=== PATIENT | female | born 1995 | race Caucasian/White ===

== ENCOUNTER 2017-12-26 20:11 | Emergency (ER) | payer SELFPAY ==
[2017-12-26 20:56] VITALS: BP 116/69
[2017-12-26] MEDS ORDERED: Ibuprofen TAB* 600 MG PO ONE (21:11)
--- NOTE | 2017-12-26 21:12 | UC ---
Lower Extremity/Ankle HPI - HPI Summary HPI Summary: 22 female presents to with complaints of left foot/ankle pain that began a few weeks ago and has worsened over the past few days. Did try taking 400mg and wrapping it however has not had relief. Admits to swelling and bruising. Is able to bear weight and walk however it increases/worsens pain. No other complaints or injuries. No PMHx. Has been walking on it since injury - History of Current Complaint Chief Complaint: UCLowerExtremity Stated Complaint: RIGHT ANKLE INJURY Time Seen by Provider: 12/26/17 20:34 Hx Obtained From: Patient Hx Last Menstrual Period: unknown Onset/Duration: Sudden Onset, Lasting Weeks, Still Present, Worse Since Severity Initially: Moderate Severity Currently: Moderate Pain Intensity: 10 Pain Scale Used: 0-10 Numeric Aggravating Factor(s): Standing, Ambulation Alleviating Factor(s): Rest Able to Bear Weight: Yes - with pain, limping - Allergies/Home Medications Allergies/Adverse Reactions: Allergies Allergy/AdvReac Type Severity Reaction Status Date / Time No Known Allergies Allergy Verified 12/26/17 20:52 Home Medications: Home Medications NK [No Home Medications Reported] 12/26/17 [History Confirmed 12/26/17] PMH/Surg Hx/FS Hx/Imm Hx Respiratory History: Asthma Neurological History: Seizures - Surgical History Surgical History: Yes Surgery Procedure, Year, and Place: Adnoidectomy, Ear Tubes - Family History Known Family History: Positive: Diabetes Negative: Cardiac Disease, Hypertension - Social History Alcohol Use: Rare Substance Use Type: None Smoking Status (MU): Light Every Day Tobacco Smoker Type: Cigarettes Amount Used/How Often: 3 cig daily Household Exposure Type: Cigarettes - Immunization History Vaccination Up to Date: Yes Review of Systems Constitutional: Negative Respiratory: Negative Cardiovascular: Negative Musculoskeletal: Arthralgia, Edema, Myalgia, Other: - bruising of right foot, laterally and anterior Neurological: Negative All Other Systems Reviewed And Are Negative: Yes Physical Exam Triage Information Reviewed: Yes Appearance: Well-Appearing, No Pain Distress, Well-Nourished Vital Signs: Initial Vital Signs Temp 98.5 F 12/26/17 20:33 Pulse 85 12/26/17 20:33 Resp 16 12/26/17 20:33 BP 116/69 12/26/17 20:33 Pulse Ox 100 12/26/17 20:33 Vital Signs Reviewed: Yes Respiratory: Positive: Chest non-tender, Lungs clear, Normal breath sounds, No respiratory distress Cardiovascular: Positive: RRR, No Murmur, Pulses Normal - 1+ pedal bilaterally Musculoskeletal: Positive: Strength Limited @ - with foot flexion and extension TTP on base of 4/5th metatarsal joints and over anterior foot lateral side, ROM Limited @, Edema @ - lateral foot and 4/5th base of metatarsal with eccymosis, Other: - no elham sign Neurological Exam: Normal - sensation intact Neurological: Positive: Alert, Muscle Tone Normal Skin: Positive: Other - bruising and edema of right foot Diagnostics - Radiology right foot Xray Interpretation: No Acute Changes - soft tissue swelling, no evidence of fracture or dislocation Radiology Interpretation Completed By: ED Physician - Dr Navarro and Myself Re-Evaluation - Re-Evaluation First Eval Re-Evaluation Time: 22:06 Change: Unchanged - updated on xray results Lower Extremity Course/Dx - Course Course Of Treatment: xray obtained and negative for fracture, appears to be suffering from foot sprain/contusion. given ibuprofen while in UC. Placed in CAM boot. continue RICE and NSAIDs. along with cam boot at home. Aware of worsening signs and symptoms to watch out for. Follow up with ortho/PCP in 1 week if symptoms persist and to ensure improvement. Rest and avoid bearing weight. no other concerns at this time. patient agrees and understands. - Differential Dx/Diagnosis Differential Diagnosis/HQI/PQRI: Contusion, Dislocation, Fracture (Closed), Sprain, Strain Provider Diagnoses: right foot sprain - Physician Notifications Discussed Patient Care With: Dr Navarro Discharge - Discharge Plan Condition: Good Disposition: HOME Patient Education Materials: Foot Sprain (ED) Referrals: Helga Wilson MD [Primary Care Provider] - Noel Miguel MD [Medical Doctor] - Additional Instructions: Continue rest, ice, elevation and wearing boot when walking. Try and refrain from walking when able. Continue ibuprofen for pain and inflammation. Follow up with PCP/Ortho for further evaluation and work up if symptoms persist or worsen. Any new or worsening symptoms please seek medical attention promptly.
--- NOTE | 2017-12-26 22:24 | RAD ---
Indication: Soft tissue swelling, bruising, and pain at the second through fifth metatarsal phalangeal joints of the RIGHT foot. Increased pain with weightbearing. Comparison: No relevant prior exams available on the [facility] PACS for comparison. Technique: AP, lateral, and oblique views RIGHT foot. REPORT AND IMPRESSION: Negative for fracture or articular malalignment. Mild soft tissue swelling over the dorsum of the forefoot.
== END 2017-12-26 22:17 | disposition home or self-care (01) ==
LOC: UCCORT 20:11
DX: S93.401A Sprain of unspecified ligament of right ankle, initial encounter (principal); X58.XXXA Exposure to other specified factors, initial encounter; Y93.9 Activity, unspecified; Y92.9 Unspecified place or not applicable; F17.210 Nicotine dependence, cigarettes, uncomplicated
CPT/HCPCS: 84702; 99213; A9270-GY; G0463

== ENCOUNTER 2018-01-19 20:28 | Emergency (ER) | payer SELFPAY ==
[2018-01-19 20:42] VITALS: BP 114/56
--- NOTE | 2018-01-19 21:08 | UC ---
General HPI - HPI Summary HPI Summary: per director of counseling "c/o vomiting and low grade fever x 2 days. " Here w/ her BF of 3 wks. denies pregancy. on OCP. took 2 tests today that were negative. tmax 99.4. last vomited 3 hrs ago after she ate dinner immediately after taking zofran. states that she is uruinating at [facility]ast every 8 hrs. has not tried to drink much fluid. she went to ER 2 days ago for chest pain. states that nausea vomiting started the following day. no diarrhea. no abd pain. no breast tenderness. denies seizures (able to keep depakote down daily). no coffee ground emesis. -much of the history is given by the BF Jeb - History of Current Complaint Chief Complaint: UCGI Stated Complaint: FEVER, EMISIS Time Seen by Provider: 01/19/18 20:57 Hx Last Menstrual Period: unknown Pain Intensity: 0 - Allergy/Home Medications Allergies/Adverse Reactions: Allergies Allergy/AdvReac Type Severity Reaction Status Date / Time cephalexin [From Keflex] Allergy Unknown Verified 01/19/18 20:40 Reaction Details Latex, Natural Rubber Allergy Hives Verified 01/19/18 20:40 Home Medications: Home Medications Divalproex DR TAB(*) [Depakote DR TAB(*)] 500 mg PO DAILY 01/19/18 [History Confirmed 01/19/18] Ondansetron ODT TAB* [Zofran 4 MG Odt TAB*] 4 mg PO BID 01/19/18 [History Confirmed 01/19/18] PMH/Surg Hx/FS Hx/Imm Hx Previously Healthy: Yes Neurological History: Seizures Psychological History: Anxiety - Surgical History Surgical History: Yes Surgery Procedure, Year, and Place: Adnoidectomy, Ear Tubes - Family History Known Family History: Positive: Diabetes Negative: Cardiac Disease, Hypertension - Social History Alcohol Use: None Substance Use Type: None Smoking Status (MU): Light Every Day Tobacco Smoker Type: Cigarettes Amount Used/How Often: 3 cig daily Household Exposure Type: Cigarettes - Immunization History Vaccination Up to Date: Yes Review of Systems Constitutional: Fever - tmax reported to be 99.4 only, Fatigue Skin: Negative Eyes: Negative ENT: Negative Respiratory: Negative Cardiovascular: Negative Gastrointestinal: Vomiting, Nausea Genitourinary: Negative Motor: Negative Neurovascular: Negative Musculoskeletal: Negative Neurological: Negative Psychological: Negative Is Patient Immunocompromised?: No All Other Systems Reviewed And Are Negative: Yes Physical Exam Triage Information Reviewed: Yes Appearance: Ill-Appearing - poor historian, hygiene is poor. ambulates without difficulty into and out of the exam room. able to mount and dismount the exam table without difficulty. Vital Signs: Initial Vital Signs Temp 97.8 F 01/19/18 20:37 Pulse 72 01/19/18 20:37 Resp 16 01/19/18 20:37 BP 114/56 01/19/18 20:37 Pulse Ox 99 01/19/18 20:37 Vital Signs Reviewed: Yes Eye Exam: Normal ENT Exam: Normal ENT: Positive: Pharynx normal, TMs normal Neck exam: Normal Neck: Positive: Supple, Nontender, No Lymphadenopathy Respiratory: Positive: Lungs clear, Normal breath sounds, No respiratory distress, No accessory muscle use. Negative: Crackles, Rhonchi, Stridor, Wheezing Cardiovascular Exam: Normal Cardiovascular: Positive: RRR, No Murmur Abdomen Description: Positive: Nontender, Soft. Negative: CVA Tenderness (R), CVA Tenderness (L), Distended Bowel Sounds: Positive: Present Musculoskeletal Exam: Normal Neurological Exam: Normal Psychological Exam: Normal Skin Exam: Normal Course/Dx - Course Course Of Treatment: nausea & vomiting. reports 2 negative tests today. declines serum test at this time. needs to consider to be done in f/u. -likely viral etiology. stressed the importance of drinking water and gatorade and this is the purpose of the zofran. discussed in detail the reasons for going to the ER for IV fluids. - Differential Dx - Multi-Symptom Differential Diagnoses: Other - nausea, vomiting, viral, Provider Diagnoses: nausea, vomiting Discharge - Sign-Out/Discharge Documenting (check all that apply): Discharge - Discharge Plan Condition: Stable Disposition: HOME Prescriptions: Ondansetron ODT TAB* [Zofran 4 MG Odt TAB*] 4 mg PO Q6H PRN 5 Days #10 tab.odt PRN Reason: Nausea Patient Education Materials: Acute Nausea and Vomiting (ED) Referrals: Helga Wilson MD [Primary Care Provider] - 3 Days Additional Instructions: Make sure you try to drink sips of water adn gatorade frequently. You should go to the ER to consider IV fluids if your symptoms worsen or you are not urinating at least once every 8 hrs or you are not better tomorrow. Take the zofran every 6-8 hrs so that you can keep fluids down. - Billing Disposition and Condition Condition: STABLE Disposition: HOME
== END 2018-01-19 21:21 | disposition home or self-care (01) ==
LOC: UCCORT 20:28
DX: R11.2 Nausea with vomiting, unspecified (principal); R50.9 Fever, unspecified; R53.83 Other fatigue; R56.9 Unspecified convulsions; F41.9 Anxiety disorder, unspecified; Z88.1 Allergy status to other antibiotic agents; Z91.040 Latex allergy status; F17.210 Nicotine dependence, cigarettes, uncomplicated
CPT/HCPCS: 99212; G0463

== ENCOUNTER 2019-03-15 14:09 | Emergency (ER) | payer OTHER | END 2019-03-15 15:26 | disposition left against medical advice (07) | LOC: UCCORT 14:09 | DX: M25.571 Pain in right ankle and joints of right foot (principal); Z53.21 Procedure and treatment not carried out due to patient leaving prior to being seen by health care provider ==

== ENCOUNTER 2019-04-04 13:00 | Emergency (ER) | payer OTHER ==
[2019-04-04 13:30] VITALS: BP 95/50
--- NOTE | 2019-04-04 14:07 | UC ---
Lower Extremity/Ankle HPI - HPI Summary HPI Summary: 24 y/o female presents to the urgent care c/o Boyfriend dropped a drill on pt's L foot on monday. Pt went to ER on Monday and pt states that the doctor didn't take any x-rays, perform any tests, or give her any meds. Pt statest that the pain seems to be getting worse and would like a second opinion. - History of Current Complaint Chief Complaint: UCGeneralIllness Stated Complaint: LEFT FOOT INJURY Time Seen by Provider: 04/04/19 13:59 Hx Obtained From: Patient Hx Last Menstrual Period: unknown Pain Intensity: 7 - Allergies/Home Medications Allergies/Adverse Reactions: Allergies Allergy/AdvReac Type Severity Reaction Status Date / Time cephalexin [From Keflex] Allergy Unknown Verified 04/04/19 13:30 Reaction Details Latex, Natural Rubber Allergy Hives Verified 04/04/19 13:30 PMH/Surg Hx/FS Hx/Imm Hx - Surgical History Surgical History: Yes Surgery Procedure, Year, and Place: Adnoidectomy, Ear Tubes - Family History Known Family History: Positive: Diabetes Negative: Cardiac Disease, Hypertension - Social History Alcohol Use: Occasionally Substance Use Type: None Substance Use Comment - Amount & Last Used: occassionally Smoking Status (MU): Heavy Every Day Tobacco Smoker Type: Cigarettes Amount Used/How Often: 1 ppd Household Exposure Type: Cigarettes - Immunization History Vaccination Up to Date: Yes Physical Exam - Summary Physical Exam Summary: Vital Signs Reviewed: Yes General : well developed, well nourished female w/o any apparent distress Eyes: Positive: Conjunctiva Clear - PERRLA, EOMI ENT: Positive: Normal ENT inspection, Hearing grossly normal, Pharynx normal, TMs normal Neck: Positive: Supple, Nontender, No Lymphadenopathy Respiratory: Positive: Chest non-tender, Lungs clear, Normal breath sounds, No respiratory distress Cardiovascular: Positive: RRR, No Murmur, Pulses Normal Abdomen Description: Positive: Nontender, No Organomegaly, Soft. Negative: CVA Tenderness (R), CVA Tenderness (L) Bowel Sounds: Positive: Present Musculoskeletal: Positive: Strength Intact, ROM Intact, No Edema, Other: - Foot/ Toes: Pt is able to bear weight but ambulate with mild limping. RT foot :No surface trauma, ecchymosis, erythema, lesions, ulcers or break in skin integrity. The R foot is without obvious asymmetry or deformity when compared to the L foot. No bony step-off, No tenderness to palpation over toes, point tenderness over the dorsal side of mid foot and base of the 4th and 5th metatarsal and sole at the same level, no tenderness of hindfoot, Decrease plantar/dorsiflexion, inversion/eversion due to pain. Distal motor and neurovascular status are intact. Neurological Exam: Normal Psychological Exam: Normal Skin Exam: Normal Triage Information Reviewed: Yes Vital Signs: Initial Vital Signs Temp 98.5 F 04/04/19 13:24 Pulse 62 04/04/19 13:24 Resp 18 04/04/19 13:24 BP 95/50 04/04/19 13:24 Pulse Ox 100 04/04/19 13:24 Lower Extremity Course/Dx - Differential Dx/Diagnosis Differential Diagnosis/HQI/PQRI: Contusion, Fracture (Closed), Sprain, Strain, Tendonitis Provider Diagnosis: Right foot injury, Right foot sprain Discharge - Sign-Out/Discharge Documenting (check all that apply): Patient Departure - D/C home All imaging exams completed and their final reports reviewed: Yes - Discharge Plan Condition: Stable Disposition: HOME Patient Education Materials: Foot Sprain (ED) Referrals: Helga Wilson MD [Primary Care Provider] - 1 Week Noel Miguel MD [Medical Doctor] - 1 Week Additional Instructions: 1-Please take Ibuprofen PO q6-8hrs prn after meals as directed to alleviate pain and swelling. 2-Please apply ice, keep your foot immobilized with the Maximilian bandage and post- op shoe. Avoid strenuous exercise or standing for long periods of time 3- Please f/u with Orthopedic DR Miguel or your PCP in 1 week if not improvement of symptoms for further evaluation and treatment. - Billing Disposition and Condition Condition: STABLE Disposition: Home
== END 2019-04-04 14:38 | disposition home or self-care (01) ==
LOC: UCCORT 13:00
DX: S93.601A Unspecified sprain of right foot, initial encounter (principal); S99.921A Unspecified injury of right foot, initial encounter; W20.8XXA Other cause of strike by thrown, projected or falling object, initial encounter; Y92.9 Unspecified place or not applicable; F17.210 Nicotine dependence, cigarettes, uncomplicated
CPT/HCPCS: 99213; G0463

== ENCOUNTER 2019-08-28 12:44 | Emergency (ER) | payer OTHER ==
[2019-08-28 13:30] VITALS: BP 98/74
--- NOTE | 2019-08-28 14:22 | UC ---
Lower Extremity/Ankle HPI - HPI Summary HPI Summary: 24-year-old female presents with 3 week history of right ankle pain. No known injury. Pain is located to the lateral aspect of her ankle. Worsens with walking and weightbearing. No alleviating factors but has not taken any over- the-counter analgesics for the pain. Denies fever, chills, erythema, ecchymosis , edema, numbness, or tingling. - History of Current Complaint Chief Complaint: UCLowerExtremity Stated Complaint: RT ANKLE PAIN Time Seen by Provider: 08/28/19 13:27 Hx Obtained From: Patient Hx Last Menstrual Period: nexplanon Pain Intensity: 4 - Allergies/Home Medications Allergies/Adverse Reactions: Allergies Allergy/AdvReac Type Severity Reaction Status Date / Time cephalexin [From Keflex] Allergy Unknown Verified 08/28/19 13:21 Reaction Details Latex, Natural Rubber Allergy Hives Verified 08/28/19 13:21 Home Medications: Home Medications Albuterol HFA INHALER* [Ventolin HFA Inhaler*] 2 puff INH Q4H PRN 08/28/19 [ History Confirmed 08/28/19] FLUoxetine CAP* [PROzac CAP*] 40 mg PO DAILY 08/28/19 [History Confirmed ] PMH/Surg Hx/FS Hx/Imm Hx Respiratory History: Asthma Psychological History: Depression - Surgical History Surgical History: Yes Surgery Procedure, Year, and Place: Adnoidectomy, Ear Tubes - Family History Known Family History: Positive: Diabetes Negative: Cardiac Disease, Hypertension - Social History Occupation: Disabled Lives: With Family Alcohol Use: Occasionally Substance Use Type: Marijuana Substance Use Comment - Amount & Last Used: occassionally Smoking Status (MU): Heavy Every Day Tobacco Smoker Type: Cigarettes Amount Used/How Often: 1 ppd Household Exposure Type: Cigarettes - Immunization History Vaccination Up to Date: Yes Review of Systems All Other Systems Reviewed And Are Negative: Yes Constitutional: Negative: Fever, Chills Skin: Negative: Bruising Respiratory: Positive: Negative Cardiovascular: Positive: Negative Gastrointestinal: Positive: Negative Genitourinary: Positive: Negative Motor: Negative: Weakness Neurovascular: Negative: Decreased Sensation Musculoskeletal: Positive: Arthralgia - See HPI. Negative: Calf Tenderness, Decreased ROM, Edema Neurological: Positive: Negative Is Patient Immunocompromised?: No Physical Exam - Summary Physical Exam Summary: GENERAL APPEARANCE: Well developed, well nourished, alert and cooperative, and appears to be in no acute distress. CARDIAC: Normal S1 and S2. No S3, S4 or murmurs. Rhythm is regular. There is no peripheral edema, cyanosis or pallor. Extremities are warm and well perfused. Capillary refill is less than 2 seconds. Peripheral pulses intact. LUNGS: Clear to auscultation without rales, rhonchi, wheezing or diminished breath sounds. ABDOMEN: Positive bowel sounds. Soft, nondistended, nontender. No guarding or rebound. No masses or hepatosplenomegally. MUSKULOSKELETAL: Normal muscular development. Normal gait. EXTREMITIES: Mild tenderness to the lateral aspect of right ankle without gross deformity, erythema, ecchymosis, or edema. Full ROM. Circulation and sensation intact. SKIN: Skin normal color, texture and turgor with no lesions or eruptions. Triage Information Reviewed: Yes Vital Signs: Initial Vital Signs Temp 98.6 F 08/28/19 13:23 Pulse 67 08/28/19 13:23 Resp 16 08/28/19 13:23 BP 98/74 08/28/19 13:23 Pulse Ox 100 08/28/19 13:23 Vital Signs Reviewed: Yes Diagnostics - Radiology No standard instances Radiology Interpretation Completed By: Radiologist Summary of Radiographic Findings: Order Information: ANKLE RIGHT 3+VWS. HISTORY : non-traumatic pain x 3 weeks . COMPARISONS: None relevant available at the time of dictation. VIEWS: 3, Frontal, lateral, and oblique views of the right ankle. FINDINGS: BONE DENSITY: Normal. BONES: There is no displaced fracture. JOINTS: There is no arthropathy. ALIGNMENT: There is no dislocation. SOFT TISSUES: Unremarkable. OTHER FINDINGS: None. IMPRESSION: NO ACUTE OSSEOUS INJURY. Lower Extremity Course/Dx - Course Course Of Treatment: 24-year-old female presents with 3 week history of right ankle pain. No known injury. Pain is located to the lateral aspect of her ankle. Worsens with walking and weightbearing. No alleviating factors but has not taken any over- the-counter analgesics for the pain. Denies fever, chills, erythema, ecchymosis , edema, numbness, or tingling. Afebrile. Vital signs stable. Patient had mild tenderness to the lateral aspect of right ankle without gross deformity, erythema, ecchymosis, or edema. Full ROM. Circulation and sensation intact. Remainder of exam was unremarkable. X-ray showed no acute osseous injury. Results were reviewed with the patient. Recommending conservative treatment for right ankle pain including [id number] analgesics and RACE. She is to follow-up with her primary care provider in 5-7 days if symptoms are not improving. Anticipatory guidance warning symptoms were reviewed with the patient. Verbalizes understanding and agrees with plan of care. - Differential Dx/Diagnosis Differential Diagnosis/HQI/PQRI: Arthritis, Fracture (Closed), Sprain, Tendonitis Provider Diagnosis: Right ankle pain Discharge ED - Sign-Out/Discharge Documenting (check all that apply): Patient Departure All imaging exams completed and their final reports reviewed: Yes - Discharge Plan Condition: Stable Disposition: HOME Patient Education Materials: Arthralgia (ED) Referrals: Helga Wilson MD [Primary Care Provider] - 5 Days Additional Instructions: The x-ray performed in the clinic today showed no evidence of a fracture. Rest the continue as much as possible. Apply ice to the affected area for 15-20 minutes at least 4 times a day to help with the pain and swelling. Elevate the leg to help reduce swelling. Take acetaminophen (Tylenol) or ibuprofen (Advil, Motrin) according to directions as needed for pain. Follow up with your primary care provider in 5-7 days if symptoms do not improve. Seek immediate medical attention if you have severe pain not managed with pain medication, you are unable to walk or bear any weight, develop numbness or tingling in the foot or toes, or have any worsening of symptoms. - Billing Disposition and Condition Condition: STABLE Disposition: Home
== END 2019-08-28 14:26 | disposition home or self-care (01) ==
LOC: UCCORT 12:44
DX: M25.571 Pain in right ankle and joints of right foot (principal); F17.210 Nicotine dependence, cigarettes, uncomplicated; F41.9 Anxiety disorder, unspecified; F32.9 Major depressive disorder, single episode, unspecified; Z79.899 Other long term (current) drug therapy; Z88.1 Allergy status to other antibiotic agents; Z91.040 Latex allergy status
CPT/HCPCS: 99211; G0463